=== PATIENT | female | born 1990 | race African-American/Black ===

== ENCOUNTER 2019-08-10 21:48 | Emergency (ER) | payer MEDICAID ==
[~2019-08-10] VITALS: Ht 172.7 cm; Wt 80.0 kg
[~2019-08-10 21:48] MED LIST: DIVA500T3; QUET50TA; SERT50TA
[2019-08-10] MEDS ORDERED: MORPHINE SULFATE 4 MG/ML CPJ (NOT FOR IM USE) IV STA (23:01)
[2019-08-10] MEDS ORDERED: SODIUM CHLORIDE 0.9% 1,000 ML IV ONE (23:01)
[2019-08-10] MEDS ORDERED: ONDANSETRON HCL 4MG/2ML INJ IV STA (23:01)
[2019-08-11] MEDS ORDERED: MORPHINE SULFATE 4 MG/ML CPJ (NOT FOR IM USE) IV STA (01:12)
[2019-08-11] MEDS ORDERED: SODIUM CHLORIDE 0.9% 1,000 ML IV ONE (01:12)
[2019-08-11] MEDS ORDERED: ONDANSETRON HCL 4MG/2ML INJ IV STA (01:12)
[2019-08-11] MEDS ORDERED: HYDROCODONE/ACETAMINOPHEN 5/325MG TABLET PO ONE (08:15)
[2019-08-11 08:22] VITALS: BP 107/51
== END 2019-08-11 08:36 | disposition short-term general hospital (02) ==
LOC: ER 21:48
DX: S02.2XXA Fracture of nasal bones, initial encounter for closed fracture (principal); S02.609A Fracture of mandible, unspecified, initial encounter for closed fracture; S06.9X9A Unspecified intracranial injury with loss of consciousness of unspecified duration, initial encounter; Z88.0 Allergy status to penicillin; Z79.899 Other long term (current) drug therapy; Y08.89XA Assault by other specified means, initial encounter; Y93.89 Activity, other specified; Y92.89 Other specified places as the place of occurrence of the external cause; Y99.8 Other external cause status
CPT/HCPCS: 70450; 70486; 72125; 96374; 96375; 99285; J2270; J2405; J7030; Z7610

== ENCOUNTER 2024-01-10 16:55 | Emergency (ER) | payer MEDICAID, OTHER ==
[~2024-01-10] VITALS: Ht 165.1 cm; Wt 75.0 kg
[2024-01-10 16:58] VITALS: BP 150/88; PULSE 63; RESP 20; TEMP 98.3; O2SAT 100
== END 2024-01-10 17:52 ==
LOC: ER 16:55
DX: Z76.1 Encounter for health supervision and care of foundling (principal)
CPT/HCPCS: 99283; Z7610

== ENCOUNTER 2025-10-02 20:58 | Emergency (ER) | payer SELFPAY ==
[~2025-10-02] VITALS: Ht 170.2 cm; Wt 82.0 kg
[2025-10-02 21:03] VITALS: TEMP 98.3; O2SAT 99
[2025-10-02] MEDS: BACITRACIN ZINC OINT UDPKT TOP ONE (22:00)
[2025-10-02] MEDS: LIDOCAINE HCL 1% 20ML VIAL INFIL ONE (22:00)
[2025-10-02 22:32] VITALS: BP 153/78; PULSE 109; RESP 18
[2025-10-02] MEDS: HYDROCODONE/ACETAMINOPHEN 5/325MG TABLET PO ONE (22:32)
[2025-10-03] MEDS ORDERED: SULFAMETHOXAZOLE/TRIMETHOPRIM 800/160MG TABLET PO ONE (01:00)
[2025-10-03] MEDS ORDERED: SULF1TAB48 MT (03:47)
[2025-10-03] MEDS ORDERED: IBUP-1455 MT (03:47)
[2025-10-03] MEDS ORDERED: HYDR-4001 MT (03:47)
[2025-10-03] MEDS ORDERED: BO1 TP (03:47)
== END 2025-10-03 05:16 | disposition left against medical advice (07) ==
LOC: ER 20:58 → CMPBEDREQ 10-04 10:35
DX: S01.91XA Laceration without foreign body of unspecified part of head, initial encounter (principal); I10 Essential (primary) hypertension; J45.909 Unspecified asthma, uncomplicated; M19.071 Primary osteoarthritis, right ankle and foot; Z87.820 Personal history of traumatic brain injury; Z88.0 Allergy status to penicillin; Z91.81 History of falling
CPT/HCPCS: 71045; 73070; 73120; 73560; 73590; 73610; 70450; 72125; 12001; 99284; 73130; J2003; Z7610; 12011